=== PATIENT | female | born 2000 | race African-American/Black ===

== ENCOUNTER 2022-10-02 19:53 | Emergency (ER) | payer MEDICAID ==
[2022-10-02 20:07] VITALS: BP_SYST 102
--- NOTE | 2022-10-02 20:29 | NUR ---
Pt brought by self, A&Ox4, pt presents to ER with N/V, states she was drinking last night and feels hang over today, pt arrived with her daughter, skin pink and warm, cap refill <3, VSS, respirations even and unlabored, cap refill <3.
--- NOTE | 2022-10-02 20:29 | NUR ---
Note guzmannikki in EDM - 10/02/22 at 2231 by [email or web address] Pt brought by mother, Alonzo&Ox4, pt presents to ER with N/V, states she was drinking last night and feels hang over today, pt arrived with her daughter, skin pink and warm, cap refill <3, VSS, respirations even and unlabored, cap refill <3.
[2022-10-02] MEDS ORDERED: NACL 0.9% 1,000 ML IV ONE (20:30)
--- NOTE | 2022-10-02 20:35 | NUR ---
Dr Bailey evaluating patient at bedside
[2022-10-02] MEDS ORDERED: KETOROLAC TROMETHAMINE 30 MG VIAL IVP ONE (20:45)
[2022-10-02] MEDS ORDERED: ONDANSETRON HCL 4 MG/2 ML VIAL IVP ONE (20:45)
[2022-10-02] MEDS ORDERED: ACETAMINOPHEN 500 MG TABLET PO ONE (20:45)
[2022-10-02 20:52] LABS: BASOPHILS % (AUTO) 0.6 % (0.0-2.0); EOSINOPHILS # (AUTO) 0.3 K/uL (0.0-0.4); EOSINOPHILS % (AUTO) 4.6 % (0.0-4.0); HEMATOCRIT 37.3 % (36-48); HEMOGLOBIN 12.3 g/dL (12.0-16.0); LYMPHOCYTES # (AUTO) 2.3 K/uL (1.0-5.5); LYMPHOCYTES % (AUTO) 35.3 % (20.5-51.5); MEAN CORPUSCULAR HEMOGLOBIN 28 pg (27-31); MEAN CORPUSCULAR HGB CONC 33 % (32-36); MEAN CORPUSCULAR VOLUME 86 fL (79.0-98.0); MONOCYTES # (AUTO) 0.5 K/uL (0.0-1.0); MONOCYTES % (AUTO) 8.5 % (1.7-9.3); NEUTROPHILS # (AUTO) 3.3 K/uL (1.8-7.7); PLATELET COUNT (AUTO) 142 K/uL (130-430); RED BLOOD CELL COUNT(AUTO) 4.35 MIL/uL (4.2-6.2); WHITE BLOOD COUNT (AUTO) 6.4 K/uL (4.8-10.8)
[2022-10-02 20:56] LABS: ANION GAP 5 (5-15); CALCIUM 8.2 mg/dL (8.4-11.0); CHLORIDE 104 mmol/L (98-107); CREATININE 0.88 mg/dL (0.55-1.30); GFR AFRICAN AMERICAN 104 mL/min (>90); GLUCOSE 88 mg/dL (70-99); UREA NITROGEN, BLOOD 12 mg/dL (8-21)
[2022-10-02 21:01] LABS: ALANINE AMINOTRANSFERASE 19 U/L (12-78); ASPARTATE AMINOTRANSFERASE 15 U/L (10-37); LIPASE 79 U/L (73-393); TOTAL BILIRUBIN 0.7 mg/dL (0.0-1.0)
[2022-10-02 21:10] LABS: ALCOHOL, BLOOD < 3 mg/dL (<10)
--- NOTE | 2022-10-02 21:12 | NUR ---
Pt unable to urinate at this time, notified
[2022-10-02] MEDS ORDERED: ACET-2634 PO (21:18)
[2022-10-02 22:27] VITALS: BP_SYST 102
--- NOTE | 2022-10-02 22:29 | NUR ---
Patient given written and verbal discharge instructions and verbalizes understanding. ER MD discussed with patient the results and treatment provided. Patient in stable condition. ID arm band removed. . Rx of Tylenol given. Patient educated on pain management and to follow up with PMD. Pain Scale 0/10. Opportunity for questions provided and answered. Medication side effect fact sheet provided.
== END 2022-10-02 22:27 | disposition home or self-care (01) ==
LOC: SED 19:53
DX: F10.129 Alcohol abuse with intoxication, unspecified (principal); R53.1 Weakness; R51.9 Headache, unspecified; R10.9 Unspecified abdominal pain; Z79.899 Other long term (current) drug therapy; Y90.6 Blood alcohol level of 120-199 mg/100 ml
CPT/HCPCS: 99283; 96374; 96361; 80053; 83690; 85025; 36415; G0482; J2405; J7030

== ENCOUNTER 2022-10-09 01:00 | Emergency (ER) | payer MEDICAID ==
[~2022-10-09] VITALS: Ht 154.9 cm; Wt 77.6 kg
[~2022-10-09 01:00] MED LIST: ACET-2634 PO
[2022-10-09 01:26] VITALS: BP_SYST 110
--- NOTE | 2022-10-09 01:26 | NUR ---
Triaged and placed patient back to the waiting room. No acute respiratory distress at this time. VSS. Informed patient to notify ED staff for any changes in condition or worsening of symptoms while waiting to be seen by a provider. Patient verbalized understanding.
[2022-10-09 02:02] LABS: BILIRUBIN,URINE 1+ (NEGATIVE); BLOOD, URINE 3+ (NEGATIVE); CLARITY/URINE CLOUDY (CLEAR); COLOR,URINE YELLOW (YELLOW); GLUCOSE,URINE NEGATIVE (NEGATIVE); KETONES,URINE TRACE (NEGATIVE); LEUKOCYTE ESTERASE ,URINE TRACE (NEGATIVE); NITRITE, URINE NEGATIVE (NEGATIVE); PROTEIN URINE 1+ (NEGATIVE); UROBILINOGEN,URINE 0.2 (0.2-1.0)
--- NOTE | 2022-10-09 02:15 | NUR ---
Patient placed in Triage room for MD evaluation.
--- NOTE | 2022-10-09 02:16 | NUR ---
Dr. BLAKELY in triage room examining the patient.
[2022-10-09 02:48] LABS: BACTERIA,URINE MODERATE /HPF (None Seen)
[2022-10-09 02:54] LABS: BARBITURATE, URINE NEGATIVE (NEG <=200); BENZODIAZEPINE, URINE NEGATIVE (NEG <=150); CANNABINOID, URINE NEGATIVE (NEG <=50); COCAINE, URINE NEGATIVE (NEG <=150); METHAMPHETAMINES SCREEN,URINE NEGATIVE (NEG <=500); OPIATE, URINE NEGATIVE (NEG <=100); PHENCYCLIDINE SCREEN,URINE NEGATIVE (NEG <=25); UR TRICYCLIC ANTIDEPRESSANTS NEGATIVE (NEG <=300); URINE AMPHETAMINE NEGATIVE (NEG <=500); URINE METHADONE NEGATIVE (NEG <=200); URINE OXYCODONE SCREEN NEGATIVE (NEG <=100); URINE PROPOXYPHENE SCREEN NEGATIVE (NEG <=300)
--- NOTE | 2022-10-09 02:54 | NUR ---
PATIENT IS TAKEN TO LABORATORY FOR A BLOOD DRAW.
--- NOTE | 2022-10-09 02:59 | NUR ---
PATIENT IS BACK FROM LABORATORY.
--- NOTE | 2022-10-09 02:59 | NUR ---
Swabbed patient for Covid Marla, Strep, Throat culture, and Influenza A&B antigen as ordered by Dr. Bailey. Patient tolerated the procedure well. Specimen dropped off at the lab.
[2022-10-09 03:09] LABS: BASOPHILS % (AUTO) 0.2 % (0.0-2.0); EOSINOPHILS % (AUTO) 0.3 % (0.0-4.0); HEMATOCRIT 39.3 % (36-48); HEMOGLOBIN 12.4 g/dL (12.0-16.0); LYMPHOCYTES # (AUTO) 1.2 K/uL (1.0-5.5); LYMPHOCYTES % (AUTO) 7.5 % (20.5-51.5); MEAN CORPUSCULAR HEMOGLOBIN 28 pg (27-31); MEAN CORPUSCULAR HGB CONC 32 % (32-36); MEAN CORPUSCULAR VOLUME 87 fL (79.0-98.0); MONOCYTES # (AUTO) 0.8 K/uL (0.0-1.0); MONOCYTES % (AUTO) 5.4 % (1.7-9.3); NEUTROPHILS # (AUTO) 13.7 K/uL (1.8-7.7); NEUTROPHILS % (AUTO) 86.6 % (40.0-70.0); PLATELET COUNT (AUTO) 131 K/uL (130-430); RED BLOOD CELL COUNT(AUTO) 4.51 MIL/uL (4.2-6.2); RED CELL DISTRIBUTION WIDTH 15.1 % (9.0-15.0); WHITE BLOOD COUNT (AUTO) 15.8 K/uL (4.8-10.8)
[2022-10-09 03:16] LABS: CALCIUM 8.4 mg/dL (8.4-11.0); CREATININE 1.01 mg/dL (0.55-1.30)
[2022-10-09 03:20] LABS: ALBUMIN 3.9 g/dL (3.4-4.8); TOTAL BILIRUBIN 0.6 mg/dL (0.0-1.0)
[2022-10-09] MEDS ORDERED: cephALEXin 500 MG CAPSULE PO ONE (03:30)
[2022-10-09] MEDS ORDERED: KETOROLAC TROMETHAMINE 30 MG VIAL IM ONE (03:30)
[2022-10-09] MEDS ORDERED: CEPH-548 PO (04:19)
[2022-10-09] MEDS ORDERED: NAPR-688 PO (04:20)
[2022-10-09 04:27] VITALS: BP_SYST 115
--- NOTE | 2022-10-09 04:27 | NUR ---
Patient given written and verbal discharge instructions and verbalizes understanding. ER DR BLAKELY discussed with patient the results and treatment provided. Patient in stable condition. ID arm band removed. Rx of NAPROXEN AND KEFLEX given. Patient educated on pain management and to follow up with PMD. Pain Scale 3/10. Opportunity for questions provided and answered. Medication side effect fact sheet provided.
== END 2022-10-09 04:27 | disposition home or self-care (01) ==
LOC: SED 01:00
DX: N39.0 Urinary tract infection, site not specified (principal); R50.9 Fever, unspecified; R42 Dizziness and giddiness; J02.9 Acute pharyngitis, unspecified; Z79.899 Other long term (current) drug therapy; Z20.822 Contact with and (suspected) exposure to COVID-19
CPT/HCPCS: 99283; 87426; 80307; 80053; 83690; 85025; 86403; 87086; 36415; 81025; 96372; 83605; 87804 ×2; 87040; 81000; 87081; J1885

== ENCOUNTER 2022-11-11 10:01 | Emergency (ER) | payer MEDICAID ==
[~2022-11-11] VITALS: Ht 154.9 cm; Wt 76.7 kg
[~2022-11-11 10:01] MED LIST changes: +CEPH-548 PO; +NAPR-688 PO
[2022-11-11 10:45] VITALS: BP_SYST 109; PULSE 67; RESP 16; TEMP 98; O2SAT 100
[2022-11-11 12:50] VITALS: BP_SYST 109; PULSE 67; RESP 16; TEMP 98; O2SAT 100
== END 2022-11-11 12:50 | disposition left against medical advice (07) ==
LOC: SED 10:01
DX: N76.0 Acute vaginitis (principal); Z79.899 Other long term (current) drug therapy
CPT/HCPCS: 36415; 81025; 84703; 86592; 87210-TC; 87491; 99284

== ENCOUNTER → 2023-02-09 12:23 | Emergency (ER) | payer MEDICAID ==
[~2023-02-09] VITALS: Ht 162.6 cm; Wt 70.8 kg
[~2023-02-09 12:23] MED LIST changes: +OMEP20CA15 PO
[2023-02-09 12:25] VITALS: BP_SYST 98; PULSE 79; RESP 18; TEMP 97.8; O2SAT 97
[2023-02-09 12:30] VITALS: BP_SYST 98; PULSE 79; RESP 18; TEMP 97.8; O2SAT 97
== END | disposition left against medical advice (07) ==
LOC: SED 12:23
DX: O20.9 Hemorrhage in early pregnancy, unspecified (principal); O26.891 Other specified pregnancy related conditions, first trimester; Z3A.01 Less than 8 weeks gestation of pregnancy; Z53.21 Procedure and treatment not carried out due to patient leaving prior to being seen by health care provider
CPT/HCPCS: 99281

== ENCOUNTER 2023-02-21 20:46 | Emergency (ER) | payer MEDICAID ==
[~2023-02-21] VITALS: Ht 154.9 cm; Wt 80.3 kg
[2023-02-21 21:00] VITALS: BP_SYST 118; PULSE 67; RESP 16; TEMP 97.6; O2SAT 98
[2023-02-21 21:46] LABS: BASOPHILS % (AUTO) 0.4 % (0.0-2.0); EOSINOPHILS # (AUTO) 0.2 K/uL (0.0-0.4); EOSINOPHILS % (AUTO) 3.4 % (0.0-4.0); HEMATOCRIT 37.1 % (36-48); LYMPHOCYTES # (AUTO) 1.9 K/uL (1.0-5.5); LYMPHOCYTES % (AUTO) 26.6 % (20.5-51.5); MEAN CORPUSCULAR HEMOGLOBIN 28 pg (27-31); MEAN CORPUSCULAR HGB CONC 32 % (32-36); MEAN CORPUSCULAR VOLUME 87 fL (79.0-98.0); MONOCYTES # (AUTO) 0.4 K/uL (0.0-1.0); MONOCYTES % (AUTO) 5.1 % (1.7-9.3); NEUTROPHILS # (AUTO) 4.6 K/uL (1.8-7.7); NEUTROPHILS % (AUTO) 64.5 % (40.0-70.0); PLATELET COUNT (AUTO) 136 K/uL (130-430); RED BLOOD CELL COUNT(AUTO) 4.29 MIL/uL (4.2-6.2); RED CELL DISTRIBUTION WIDTH 14.2 % (9.0-15.0); WHITE BLOOD COUNT (AUTO) 7.1 K/uL (4.8-10.8)
[2023-02-21 22:08] LABS: ALBUMIN 3.5 g/dL (3.4-4.8); CREATININE 0.87 mg/dL (0.55-1.30); POTASSIUM 3.4 mmol/L (3.5-5.1); TOTAL BILIRUBIN 0.4 mg/dL (0.0-1.0); TOTAL PROTEIN, SERUM 7.2 g/dL (6.4-8.3)
[2023-02-21 22:48] VITALS: RESP 19; TEMP 97.3
[2023-02-21] MEDS ORDERED: ONDA-8 TL (23:32)
[2023-02-21] MEDS ORDERED: ACET-2634 PO (23:32)
[2023-02-22 00:34] LABS: BILIRUBIN,URINE NEGATIVE (NEGATIVE); BLOOD, URINE NEGATIVE (NEGATIVE); CLARITY/URINE CLEAR (CLEAR); COLOR,URINE YELLOW (YELLOW); GLUCOSE,URINE NEGATIVE (NEGATIVE); KETONES,URINE NEGATIVE (NEGATIVE); LEUKOCYTE ESTERASE ,URINE NEGATIVE (NEGATIVE); NITRITE, URINE NEGATIVE (NEGATIVE); PH,URINE 7.5 (5.0-8.0); PROTEIN URINE NEGATIVE (NEGATIVE); UROBILINOGEN,URINE 0.2 (0.2-1.0)
[2023-02-22 00:48] VITALS: BP_SYST 89; PULSE 57; O2SAT 100
== END 2023-02-22 00:48 | disposition home or self-care (01) ==
LOC: SED 20:46
DX: O20.9 Hemorrhage in early pregnancy, unspecified (principal); O20.8 Other hemorrhage in early pregnancy; Z3A.08 8 weeks gestation of pregnancy; Z79.899 Other long term (current) drug therapy
CPT/HCPCS: 36415; 76805-TC; 80053; 81001; 81003; 84702; 85025; 86901; 99284